=== PATIENT | male | born 2000 | race African-American/Black ===

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

== ENCOUNTER → 2022-01-13 11:47 | Outpatient (BNVA) | payer MEDICAID, SELFPAY | PROVIDERS: PCP Nurse Practitioner; Visit Provider Nurse Practitioner | DX: I10 Essential (primary) hypertension (principal); R00.0 Tachycardia, unspecified | CPT/HCPCS: 80053 ==

== ENCOUNTER → 2022-06-16 16:08 | Outpatient (BNVA) | payer MEDICAID, SELFPAY | PROVIDERS: PCP Nurse Practitioner; Visit Provider Nurse Practitioner | DX: I10 Essential (primary) hypertension (principal); R00.0 Tachycardia, unspecified; Z71.89 Other specified counseling | CPT/HCPCS: 80053; 80061; 81000; 82306; 85025; 86580; 86592; 87491; 87591 ==

== ENCOUNTER → 2022-06-18 13:04 | Outpatient (BNVA) | payer MEDICAID, SELFPAY | PROVIDERS: PCP Nurse Practitioner; Visit Provider Nurse Practitioner | DX: M25.561 Pain in right knee (principal) | CPT/HCPCS: 73562 ==

== ENCOUNTER → 2022-09-23 15:04 | Outpatient (BNVA) | payer MEDICAID, SELFPAY | PROVIDERS: PCP Nurse Practitioner; Visit Provider Internal Medicine Cardiovascular Disease | DX: R00.0 Tachycardia, unspecified (principal); I11.9 Hypertensive heart disease without heart failure | CPT/HCPCS: 99214 ==

== ENCOUNTER → 2022-11-05 08:53 | Outpatient (BNVA) | payer MEDICAID, SELFPAY | PROVIDERS: PCP Nurse Practitioner; Visit Provider Nurse Practitioner | DX: E55.9 Vitamin D deficiency, unspecified (principal); I10 Essential (primary) hypertension | CPT/HCPCS: 80053; 80061; 81000; 82306; 85025 ==

== ENCOUNTER → 2023-03-20 09:03 | Outpatient (BNVA) | payer MEDICAID, SELFPAY | PROVIDERS: PCP Nurse Practitioner; Visit Provider Nurse Practitioner Family | DX: J02.9 Acute pharyngitis, unspecified (principal) | CPT/HCPCS: 87071; 87880 ==

== ENCOUNTER → 2023-04-01 11:22 | Outpatient (BNVA) | payer MEDICAID, SELFPAY | PROVIDERS: PCP Nurse Practitioner; Visit Provider Nurse Practitioner Family | DX: J02.9 Acute pharyngitis, unspecified (principal); R05.9 Cough, unspecified | CPT/HCPCS: 87070; 87426; 87486; 87581; 87633; 87880 ==

== ENCOUNTER → 2023-06-11 13:32 | Outpatient (BNVA) | payer MEDICAID, SELFPAY | PROVIDERS: PCP Nurse Practitioner; Visit Provider Nurse Practitioner | DX: E55.9 Vitamin D deficiency, unspecified (principal) | CPT/HCPCS: 80053; 82306 ==

== ENCOUNTER → 2023-06-17 14:44 | Outpatient (BNVA) | payer MEDICAID, SELFPAY | PROVIDERS: PCP Nurse Practitioner; Visit Provider Nurse Practitioner Family | DX: Z00.00 Encounter for general adult medical examination without abnormal findings (principal) | CPT/HCPCS: 81000; 85025; 86592 ==

== ENCOUNTER → 2023-09-02 10:43 | Outpatient (BNVA) | payer MEDICAID, SELFPAY | PROVIDERS: PCP Nurse Practitioner; Visit Provider Nurse Practitioner Family | DX: I10 Essential (primary) hypertension (principal); J30.89 Other allergic rhinitis; R00.0 Tachycardia, unspecified; R05.9 Cough, unspecified; Z71.89 Other specified counseling; Z23 Encounter for immunization; E55.9 Vitamin D deficiency, unspecified; I51.7 Cardiomegaly | CPT/HCPCS: 80053; 80061; 82306; 84443; 85025 ==

== ENCOUNTER → 2023-09-24 09:31 | Outpatient (BNVA) | payer MEDICAID, SELFPAY | PROVIDERS: PCP Nurse Practitioner; Visit Provider Nurse Practitioner Family | DX: D64.9 Anemia, unspecified (principal); R00.0 Tachycardia, unspecified; I10 Essential (primary) hypertension; I51.7 Cardiomegaly; F98.8 Other specified behavioral and emotional disorders with onset usually occurring in childhood and adolescence | CPT/HCPCS: 83540; 99214 ==

== ENCOUNTER → 2023-11-26 14:39 | Outpatient (BNVA) | payer MEDICAID, SELFPAY | PROVIDERS: PCP Nurse Practitioner; Visit Provider Nurse Practitioner Family | DX: I10 Essential (primary) hypertension (principal); I51.7 Cardiomegaly; R00.0 Tachycardia, unspecified; E55.9 Vitamin D deficiency, unspecified | CPT/HCPCS: 80053; 80061; 82306; 83036; 84443; 85025 ==

== ENCOUNTER → 2024-03-15 08:49 | Outpatient (BNVA) | payer MEDICAID, SELFPAY | PROVIDERS: PCP Nurse Practitioner; Visit Provider Nurse Practitioner Family | DX: I10 Essential (primary) hypertension (principal) | CPT/HCPCS: 80053 ==

== ENCOUNTER → 2024-05-31 08:56 | Outpatient (BNVA) | payer MEDICAID, SELFPAY | PROVIDERS: PCP Nurse Practitioner; Visit Provider Nurse Practitioner Family | DX: E55.9 Vitamin D deficiency, unspecified (principal); I10 Essential (primary) hypertension; R73.03 Prediabetes | CPT/HCPCS: 80053; 80061; 82306; 83036; 84443; 85025 ==

== ENCOUNTER → 2024-07-16 14:21 | Outpatient (BNVA) | payer MEDICAID, SELFPAY | PROVIDERS: PCP Nurse Practitioner; Visit Provider Emergency Medicine | DX: N39.0 Urinary tract infection, site not specified (principal) | CPT/HCPCS: 81000; 87086 ==

== ENCOUNTER → 2024-10-07 09:12 | Outpatient (BNVA) | payer MEDICAID, SELFPAY | PROVIDERS: PCP Nurse Practitioner; Visit Provider Internal Medicine Cardiovascular Disease | DX: I51.7 Cardiomegaly; R00.0 Tachycardia, unspecified | CPT/HCPCS: 99214 ==

== ENCOUNTER → 2025-03-08 14:30 | Outpatient (BNVA) | payer MEDICAID, SELFPAY | PROVIDERS: PCP Clinical Nurse Specialist Adult Health; Visit Provider Clinical Nurse Specialist Adult Health | DX: I11.9 Hypertensive heart disease without heart failure (principal); E55.9 Vitamin D deficiency, unspecified; E66.9 Obesity, unspecified | CPT/HCPCS: 80053; 80061; 82306; 83036; 85025 ==

== ENCOUNTER → 2025-06-19 14:56 | Outpatient (BNVA) | payer MEDICAID, SELFPAY | PROVIDERS: PCP Clinical Nurse Specialist Adult Health; Visit Provider Clinical Nurse Specialist Adult Health | DX: I10 Essential (primary) hypertension (principal); K21.9 Gastro-esophageal reflux disease without esophagitis; I51.7 Cardiomegaly | CPT/HCPCS: 80053; 80061; 82306; 83036; 85025 ==

== ENCOUNTER → 2025-08-18 11:47 | Outpatient (BNVA) | payer MEDICAID, SELFPAY | PROVIDERS: PCP Clinical Nurse Specialist Adult Health; Visit Provider Clinical Nurse Specialist Adult Health | DX: R10.9 Unspecified abdominal pain (principal) | CPT/HCPCS: 81000; 87086 ==

== ENCOUNTER → 2025-09-26 15:09 | Outpatient (BNVA) | payer MEDICAID, SELFPAY | PROVIDERS: PCP Nurse Practitioner Family; Visit Provider Internal Medicine Cardiovascular Disease | DX: I10 Essential (primary) hypertension (principal); R00.0 Tachycardia, unspecified; Q24.8 Other specified congenital malformations of heart; I25.10 Atherosclerotic heart disease of native coronary artery without angina pectoris; E78.5 Hyperlipidemia, unspecified | CPT/HCPCS: 99213 ==